=== PATIENT | male | born 1965 | race Caucasian/White ===

== ENCOUNTER 2023-09-22 15:12 | Emergency (ER) | payer MEDICARE, SELFPAY ==
[2023-09-22] VITALS (34 sets, daily range): BP systolic 104–179; BP diastolic 59–128; PULSE 89–113; RESP 22–39; TEMP 36.4; O2SAT 86–100; BMI 36.5
--- NOTE | 2023-09-22 15:30 | DI.RAD.S_ITS ---
PROCEDURE: XR CHEST 1V INDICATIONS: Shortness of breath TECHNIQUE: One view of the chest was acquired. COMPARISON: [facility], , CHEST 2 VIEW, 06/15/2012, 13:34. FINDINGS: Surgical changes and devices: None. Lungs and pleura: On this semiupright portable chest examination, no large pneumothorax or large pleural effusions are seen. No focal infiltrates are seen. Mild interstitial prominence can be seen. Mediastinum: Mediastinal contours appear normal. Heart size is mildly enlarged. Bones and chest wall: No suspicious bony lesions. There is a remote left clavicle fracture, which has healed with deformity. Overlying soft tissues appear unremarkable. IMPRESSION: Mild cardiomegaly and generalized interstitial prominence. Please consider CHF. Additional findings: Remote left clavicle fracture, with deformity Dictated by: Srinivasan Moise M.D. on 09/22/2023 at 15:17 Approved by: Srinivasan Moise M.D. on 09/22/2023 at 15:18
[2023-09-22] MEDS: ALBUTEROL/IPRATROPIUM 3 ML AMPUL 9 ML INH (15:43)
[2023-09-22 15:55] LABS: Add Manual Diff / Slide Review NO; Basophils Absolute Auto 100 /uL (0-100); Basophils Percent Auto 0.7 % (0-2); Eosinophils Absolute Auto 0 /uL (0-450); Eosinophils Percent Auto 0.3 % (2-4); Hematocrit 40.2 % (41-53); Hemoglobin 12.9 g/dL (13.5-17.5); Lymphocytes Absolute Auto 1800 /uL (1100-4500); Lymphocytes Percent Auto 18.9 % (25-40); Mean Corpuscular HGB Conc 32.2 % (30-36); Mean Corpuscular Hemoglobin 26.3 PG (26-34); Mean Corpuscular Volume 81.6 fL (80-100); Monocytes Absolute Auto 500 /uL (0-900); Monocytes Percent Auto 5.1 % (3-14); Neutrophils Absolute Auto 7000 /uL (1500-7000); Platelet Count 245 X10^3/uL (150-400); Red Blood Cell Count 4.93 X10^6/uL (4.5-5.9); Red Cell Distribution Width 15.4 % (11.6-14.8); White Blood Cell Count 9.3 X10^3/uL (4.5-11.0)
[2023-09-22 15:56] LABS: INR 1.5 (0.9-1.3); Prothrombin Time 17.1 SECONDS (9.4-12.5)
[2023-09-22 16:01] LABS: Alanine Aminotransferase 41 IU/L (<50); Albumin 3.9 g/dL (3.5-5.0); Albumin Globulin Ratio 1.1 (1.0-2.8); Alkaline Phosphatase 127 U/L (38-126); Aspartate Aminotransferase 54 IU/L (17-59); BUN Creatinine Ratio 24.8 (6-22); Bilirubin Total 1.7 mg/dL (0.2-1.3); Blood Urea Nitrogen 32 mg/dL (9-20); Calcium 8.9 mg/dL (8.4-10.2); Carbon Dioxide 25 mmol/L (22-32); Chloride 99 mmol/L (98-107); Estimated Glomerular Filt Rate > 60 mL/min (>60); Globulin 3.4 g/dL (1.7-4.1); Glucose 260 mg/dL (70-100); HEMOLYSIS < 15 (0-50); Potassium 4.1 mmol/L (3.4-5.1); Sodium 133 mmol/L (137-145); Total Protein 7.3 g/dL (6.3-8.2)
[2023-09-22 16:02] LABS: Lactate (Lactic Acid) 1.4 mmol/L (0.7-2.1)
[2023-09-22 16:13] LABS: NT-proBNP (BNP-Adult 18+) 7340 pg/mL (<125)
[2023-09-22 16:26] LABS: Troponin I 0.254 ng/mL (0.01-0.034)
--- NOTE | 2023-09-22 16:34 | ED_ITS ---
HPI - General Adult General Chief complaint: Shortness of Breath/Dyspnea Stated complaint: sob, achey muscles Time Seen by Provider: 09/22/23 15:52 Source: patient Mode of arrival: Ambulatory History of Present Illness HPI narrative: 58-year-old gentleman with a history of COPD, hypertension poor medical compliance who presents with increasing dyspnea over the past number of days. He has been having an increasing cough and this afternoon became acutely more short of breath took some Mucinex and feels that the Mucinex caused worsening dyspnea, central chest pressure described as 5 to 6/10 that has not resolved, diaphoresis and nausea. I suspect that the Mucinex is true, true and unrelated. Related Data Home Medications Medication Instructions Recorded Confirmed HYDROCOD/ACET 5/500 (bulk)- 2 tab PO Q4HP ##0 06/15/12 (Hydrocodon-Acetaminophen 5-500) atenolol 25 mg tablet 50 mg PO BID ##0 06/15/12 cyclobenzaprine 10 mg tablet 5 mg PO TIDPRN ##0 06/24/12 duloxetine 60 mg capsule,delayed 60 mg PO QDAY ##0 06/24/12 release (Cymbalta) lisinopril 10 mg tablet 10 mg PO QDAY ##0 06/24/12 methocarbamol 750 mg tablet 750 mg PO PRN ##1 06/24/12 (Robaxin-750) ibuprofen 600 mg tablet PO PRN ##0 07/16/12 Allergies Allergy/AdvReac Type Severity Reaction Status Date / Time codeine Allergy Mild ITCHING Verified 09/22/23 16:48 Review of Systems Review of Systems Narrative: Pertinent positive and negative findings as per HPI Patient History Medical History Hypertension COPD (chronic obstructive pulmonary disease) Social History Smoking Status: Current every day smoker Smoking Status: Current every day smoker tobacco type: cigarettes Substance Use Type: does not use Exam Initial Vital Signs Initial Vital Signs: Vital Signs Temperature 97.6 F 09/22/23 15:23 Pulse Rate 111 H 09/22/23 15:23 Respiratory Rate 26 H 09/22/23 15:23 Blood Pressure 167/106 H 09/22/23 15:23 Pulse Oximetry 97 09/22/23 15:23 Oxygen Delivery Method Room Air 09/22/23 15:23 General: Chronically ill-appearing, complaining of central chest pressure/tightness, pale, [place], diaphoretic, dyspneic HEENT: Moist mucous membranes, normal sclera with reactive pupils, Neck: No JVD, supple Respiratory: Lungs are clear to auscultation, no wheezing no rales no rhonchi. Full and symmetrical air movement Cardiac: Regular rate and rhythm no murmurs no bruits Abdomen: Soft, nontender, good bowel tones, no flank pain Skin: Pale, diaphoretic Neurologic: Grossly neurologically intact with no obvious asymmetries or abnormalities Extremities: No trauma, well perfused Psych: Cooperative, appropriate insight and affect Course Orders Ordered: ED Orders 09/22/23 15:30 XR chest 1V Stat Measure peak expiratory flow ONCE RT Consult Eval and Treat NOW 09/22/23 15:35 EKG-12 Lead Stat 09/22/23 15:37 Complete Blood Count AUTO DIFF Stat Comprehensive Metabolic Panel Stat D Dimer Stat Lactate (Lactic Acid) Stat NT-proBNP (BNP-Adult 18+) Stat Prothrombin Time INR Stat Troponin I Stat 09/22/23 15:54 Covid-19 + FLU A/B + RSV - PCR Stat 09/22/23 16:42 EKG-12 Lead Stat 09/22/23 17:23 EKG-12 Lead Stat 09/22/23 17:45 Trop I [Troponin I] Stat Discontinued Medications Albuterol/Ipratropium (Albuterol/Ipratropium 3 Ml Ampul) 9 ml INH NOW ONE Stop: 09/22/23 15:40 Last Admin: 09/22/23 15:43 Dose: 9 ml Documented By: STEVE Furosemide (Furosemide 40 Mg/4 Ml Vial) 40 mg IV NOW ONE Stop: 09/22/23 16:35 Last Admin: 09/22/23 16:44 Dose: 40 mg Heparin Sodium (Porcine) (Heparin 5,000 Unit/Ml Vial) 5,000 unit IV NOW ONE Stop: 09/22/23 16:55 Last Admin: 09/22/23 16:59 Dose: 5,000 unit Heparin Sodium/Dextrose (Heparin Drip) 25,000 unit in 500 mls @ 26.127 mls/hr IV CONT ELIZABET; Protocol Last Titration: 09/22/23 18:14 Dose: 12 units/kg/hr, 26.127 mls/hr Sodium Nitroprusside 50 mg/ (Dextrose) 250 mls @ 16.329 mls/hr IV TITRATE ELIZABET; Protocol Last Titration: 09/22/23 18:14 Dose: 0.5 mcg/kg/min, 16.329 mls/hr Metoprolol Tartrate (Metoprolol Tartrate 5 Mg/5 Ml Inj) 5 mg IV Q5M ELIZABET Stop: 09/22/23 16:56 Last Admin: 09/22/23 17:39 Dose: 5 mg Morphine Sulfate (Morphine 2 Mg/Ml Inj) 2 mg IV Q5MIN PRN PRN Reason: Chest Pain Last Admin: 09/22/23 17:39 Dose: 2 mg Nitroglycerin (Nitroglycerin 0.4 Mg Sl Tab) 0.4 mg SL [id number] PRN PRN Reason: Chest Pain Last Admin: 09/22/23 16:41 Dose: 0.4 mg Nitroglycerin (Nitroglycerin Oint 1 Inch/Gm Oint...G.) 0.5 inch TOP NOW ONE Stop: 09/22/23 16:35 Last Admin: 09/22/23 16:42 Dose: 0.5 inch Vital Signs Vital signs: Vital Signs - 8 hr 09/22/23 15:23 09/22/23 15:40 09/22/23 15:43 Temperature 97.6 F Pulse Rate 111 H 109 H 110 H Respiratory Rate 26 H 31 H 22 Blood Pressure 167/106 H Pulse Oximetry 97 97 100 Oxygen Delivery Method Room Air Room Air Room Air Oxygen Flow Rate 09/22/23 16:00 09/22/23 16:15 09/22/23 16:30 Temperature Pulse Rate 110 H 109 H 112 H Respiratory Rate 29 H 27 H 30 H Blood Pressure Pulse Oximetry 100 96 93 Oxygen Delivery Method Oxygen Flow Rate 09/22/23 16:33 09/22/23 16:33 09/22/23 16:41 Temperature Pulse Rate 112 H 113 H Respiratory Rate 30 H Blood Pressure 179/105 H 179/105 H Pulse Oximetry 96 Oxygen Delivery Method Oxygen Flow Rate 09/22/23 16:42 09/22/23 16:44 09/22/23 16:45 Temperature Pulse Rate 113 H 113 H Respiratory Rate 38 H Blood Pressure 179/105 H 178/128 H Pulse Oximetry 100 Oxygen Delivery Method Nasal Cannula Oxygen Flow Rate 09/22/23 16:45 09/22/23 16:46 09/22/23 16:46 Temperature Pulse Rate 113 H 113 H Respiratory Rate 36 H 36 H Blood Pressure 127/76 Pulse Oximetry 99 100 Oxygen Delivery Method Oxygen Flow Rate 09/22/23 16:49 09/22/23 16:49 09/22/23 16:50 Temperature Pulse Rate 113 H Respiratory Rate 31 H Blood Pressure 135/80 128/75 Pulse Oximetry 99 Oxygen Delivery Method Nasal Cannula Oxygen Flow Rate 2 09/22/23 16:50 09/22/23 16:54 09/22/23 16:54 Temperature Pulse Rate 113 H 111 H Respiratory Rate 31 H 29 H Blood Pressure 122/73 Pulse Oximetry 99 98 Oxygen Delivery Method Oxygen Flow Rate 09/22/23 16:55 09/22/23 16:56 09/22/23 16:56 Temperature Pulse Rate 104 H 102 H Respiratory Rate 34 H 27 H Blood Pressure 104/81 Pulse Oximetry 98 99 Oxygen Delivery Method Oxygen Flow Rate 09/22/23 17:00 09/22/23 17:00 09/22/23 17:05 Temperature Pulse Rate 99 H 97 H Respiratory Rate 39 H 30 H Blood Pressure 114/78 Pulse Oximetry 95 100 Oxygen Delivery Method Oxygen Flow Rate 09/22/23 17:05 09/22/23 17:07 09/22/23 17:07 Temperature Pulse Rate 97 H Respiratory Rate 30 H Blood Pressure 112/60 106/59 L Pulse Oximetry 99 Oxygen Delivery Method Oxygen Flow Rate 09/22/23 17:10 09/22/23 17:11 09/22/23 17:11 Temperature Pulse Rate 96 H 97 H Respiratory Rate 29 H 28 H Blood Pressure 116/74 Pulse Oximetry 94 98 Oxygen Delivery Method Oxygen Flow Rate 09/22/23 17:15 09/22/23 17:15 09/22/23 17:20 Temperature Pulse Rate 93 H 93 H Respiratory Rate 31 H 35 H Blood Pressure 119/75 Pulse Oximetry 97 97 Oxygen Delivery Method Nasal Cannula Oxygen Flow Rate 2 09/22/23 17:21 09/22/23 17:21 09/22/23 17:25 Temperature Pulse Rate 94 H 93 H Respiratory Rate 29 H 22 Blood Pressure 115/88 Pulse Oximetry 99 99 Oxygen Delivery Method Oxygen Flow Rate 09/22/23 17:26 09/22/23 17:26 09/22/23 17:30 Temperature Pulse Rate 93 H Respiratory Rate 29 H Blood Pressure 130/88 112/67 Pulse Oximetry 96 Oxygen Delivery Method Oxygen Flow Rate 09/22/23 17:30 09/22/23 17:35 09/22/23 17:35 Temperature Pulse Rate 92 H 94 H Respiratory Rate 28 H 28 H Blood Pressure 129/73 Pulse Oximetry 98 91 Oxygen Delivery Method Oxygen Flow Rate 09/22/23 17:40 09/22/23 17:40 09/22/23 17:45 Temperature Pulse Rate 93 H 93 H Respiratory Rate 26 H 26 H Blood Pressure 128/78 Pulse Oximetry 96 Oxygen Delivery Method Oxygen Flow Rate 09/22/23 17:50 09/22/23 17:50 09/22/23 17:55 Temperature Pulse Rate 90 89 Respiratory Rate 26 H 34 H Blood Pressure 127/86 Pulse Oximetry 86 L Oxygen Delivery Method Oxygen Flow Rate 09/22/23 17:55 09/22/23 18:00 09/22/23 18:00 Temperature Pulse Rate 90 Respiratory Rate 24 Blood Pressure 129/86 131/90 Pulse Oximetry 89 L 92 Oxygen Delivery Method Oxygen Flow Rate Medical Decision Making Lab Data 09/22/23 15:37 09/22/23 15:37 Labs: Lab Results 09/22/23 09/22/23 09/22/23 Range/Units 15:37 15:54 17:49 WBC 9.3 (4.5-11.0) X10^3/uL RBC 4.93 (4.5-5.9) X10^6/uL Hgb 12.9 L (13.5-17.5) g/dL Hct 40.2 L (41-53) % MCV 81.6 (80-100) fL MCH 26.3 (26-34) PG MCHC 32.2 (30-36) % RDW 15.4 H (11.6-14.8) % Plt Count 245 (150-400) X10^3/uL Neut % (Auto) 75.0 (50-75) % Lymph % (Auto) 18.9 L (25-40) % [place] % (Auto) 5.1 (3-14) % Eos % (Auto) 0.3 L (2-4) % Baso % (Auto) 0.7 (0-2) % Neut # (Auto) 7000 (8074-9378) /uL Lymph # (Auto) 1800 (5644-1025) /uL [place] # (Auto) 500 (0-900) /uL Eos # (Auto) 0 (0-450) /uL Baso # (Auto) 100 (0-100) /uL PT 17.1 H (9.4-12.5) SECONDS INR 1.5 H (0.9-1.3) D-Dimer 2200 H (<500) ng/ml Sodium 133 L (137-145) mmol/L Potassium 4.1 (3.4-5.1) mmol/L Chloride 99 (98-107) mmol/L Carbon Dioxide 25 (22-32) mmol/L BUN 32 H (9-20) mg/dL Creatinine 1.29 H (0.66-1.25) mg/dL Estimated GFR > 60 (>60) mL/min BUN/Creatinine Ratio 24.8 H (6-22) Glucose 260 H (70-100) mg/dL Lactate 1.4 (0.7-2.1) mmol/L Calcium 8.9 (8.4-10.2) mg/dL Total Bilirubin 1.7 H (0.2-1.3) mg/dL AST 54 (17-59) IU/L ALT 41 (<50) IU/L Alkaline Phosphatase 127 H (38-126) U/L Troponin I 0.254 H* 0.275 H* (0.01-0.034) ng/mL NT-Pro-B Natriuret Pep 7340 H (<125) pg/mL Total Protein 7.3 (6.3-8.2) g/dL Albumin 3.9 (3.5-5.0) g/dL Globulin 3.4 (1.7-4.1) g/dL Albumin/Globulin Ratio 1.1 (1.0-2.8) SARS-CoV-2 (PCR) Negative (Negative) Influenza A (RT-PCR) Flu a negative (NEGATIVE) Influenza B (RT-PCR) Flu b negative (NEGATIVE) RSV (PCR) Negative (Negative) MDM Narrative Medical decision making narrative: CC:chest pain Complicating co-morbidities: COPD, continued smoker, untreated hypertension Data collected from: patient Medical records reviewed: No medical records are available Differential considered: STEMI, acute coronary syndrome, pulmonary embolism, pneumothorax, COPD exacerbation Exam documented above, pertinent findings include: Patient is acutely uncomfortable, initially pale, diaphoretic, tachypneic. Minor scattered wheezes, no abdominal pain, no palpable reproducible chest pain and no lower extremity edema Lab Test results independently reviewed as above. Pertinent findings: CBC is unremarkable Chemistries show creatinine of 1.29, potassium is appropriate, sodium is 133, glucose is elevated at 260. Bilirubin elevated at 1.7. Initial troponin is 0.25 for ProBNP is 7000 Independently reviewed EK Sinus tach, STT wave changes not meeting STEMI criteria. Less than a mm elevation anteriorly with lead 3 and V6 showing some minor ST depression again not meeting STEMI criteria With continued pain and positive troponin returned at 4:42 p.m. EKG is unchanged sinus tach at 112. Nonspecific T-wave abnormalities not meeting STEMI criteria With continued chest pain, now increasing diaphoresis and dyspnea EKG is repeated at 5:26 p.m. and again unchanged Imaging studies independently reviewed: Consultations: Care is reviewed with Dr. Aiken, development team lead at [facility] She is consulted with the emergency physician and will arrange for ED to ED transfer with anticipation that he will go to the landscaping and groundskeeping laborer when landscaping and groundskeeping laborer becomes immediately available. Discussed with ED, Dr. Roth. Accepts patient ED to ED transfer to [facility] Treatments: Aspirin, heparin drip, sublingual nitro currently on nitroglycerin drip , IV metoprolol, IV heparin, IV morphine Re-evaluations: In looking at labs does not look like congestive heart failure or diabetes are part of his prior diagnoses Discussion: 58-year-old gentleman with cough for a week with acute significant change early this afternoon suggesting acute coronary event. Pulmonary embolism is a possibility. This point he has not stable enough to go to the CT scanner but it D-dimer will be added. If negative we will be helpful if not will need further evaluation. Findings reviewed with the patient as well as his brother with concerns for acute coronary syndrome with continued pain that I am not able to completely control. After discussion with Dr. Aiken, currently they have a patient in the landscaping and groundskeeping laborer but Mr. Josue has been accepted as an ED the ED transfer with likely transfer to the landscaping and groundskeeping laborer when available. We will continue with nitro drips, heparin drips, morphine as needed, oxygen. Patient is aware of concerns, have reviewed findings with his brother as well. Stat transfer has been initiated. Second troponin and D-dimer are currently pending Handoff given to medics, questions answered. Patient remains in serious condition but hemodynamically stable at time of stat transfer to [facility]. 7pm positive D-dimer at 2200 and increasingly elevating troponin at 0.275 are both shared with the accepting [facility] physician. Critical Care Time Critical Care Time Critical Care Time: Yes Total Critical Care Time: 36 Attestation: Critical care time is separate from other billable procedures. There is a high probability of a significant, sudden or life-threatening deterioration that requires my full and direct attention, intervention and personal management. This critical care time includes consultation with family and other consulting doctors, review of records, and interpretation of data from labs, EKGs and imaging as well as managements of unstable angina, NSTEMI Discharge Plan Departure Patient Disposition: [facility] Clinical Impression: Angina pectoris, unstable, Non-ST elevation SC (NSTEMI), Elevated blood sugar Congestive heart failure Qualifiers: Heart failure type: unspecified Heart failure chronicity: unspecified Qualified Code(s): I50.9 - Heart failure, unspecified Prescriptions: No Action atenolol 25 MG tablet 50 mg PO BID Qty: 0 HYDROCOD/ACET 5/500 (bulk)- (Hydrocodon-Acetaminophen 5-500) 2 tab PO Q4HP Qty: 0 lisinopril 10 MG tablet 10 mg PO QDAY Qty: 0 cyclobenzaprine 10 MG tablet 5 mg PO TIDPRN Qty: 0 methocarbamol [Robaxin-750] 750 MG tablet 750 mg PO PRN Qty: 1 duloxetine [Cymbalta] 60 MG capsule,delayed release(DR/EC) 60 mg PO QDAY Qty: 0 ibuprofen 600 MG tablet PO PRN Qty: 0 Referrals: Miscellaneous,Doctor, MD [Primary Care Provider] -
[2023-09-22 16:38] LABS: Influenza A - CEPHEID Flu A NEGATIVE (NEGATIVE); Influenza B - CEPHEID Flu B NEGATIVE (NEGATIVE); Respiratory Syncytial Virus Negative (Negative)
[2023-09-22] MEDS: NITROGLYCERIN 0.4 MG SL TAB SL (16:41)
[2023-09-22] MEDS: NITROGLYCERIN OINT 1 INCH/GM OINT...G. 0.5 INCH TOP (16:42)
[2023-09-22] MEDS: FUROSEMIDE 40 MG/4 ML VIAL IV (16:44)
[2023-09-22 16:46] LABS: COVID-19 CEPHEID 4-PLEX PCR Negative (Negative)
[2023-09-22] MEDS: METOPROLOL TARTRATE 5 MG/5 ML INJ IV ×3 (16:51→17:39)
--- NOTE | 2023-09-22 16:57 | PC.NURSE ---
nitro paste off at 1656, to start on a NTG drip
[2023-09-22] MEDS: HEPARIN 5,000 UNIT/ML VIAL 5000 UNIT IV (16:59)
[2023-09-22] MEDS: HEPARIN DRIP 25,000 UNIT/500 ML IV.SOLN 26.127 UNIT IV (17:00)
[2023-09-22] MEDS: NITROPRUSSIDE SODIUM IV (17:18)
[2023-09-22] MEDS: DEXTROSE 5% IV (17:18)
[2023-09-22] MEDS: WATER IV (17:18)
[2023-09-22] MEDS: MORPHINE 2 MG/ML INJ IV (17:39)
[2023-09-22 18:01] LABS: D Dimer 2200 ng/ml (<500)
--- NOTE | 2023-09-22 18:13 | PC.NURSE ---
rpt called to Bakari king at [facility]
[2023-09-22 18:24] LABS: Troponin I 0.275 ng/mL (0.01-0.034)
== END 2023-09-22 18:14 | disposition short-term general hospital (02) ==
PROVIDERS: Emergency Provider Emergency Medicine
DX: I21.4 Non-ST elevation (NSTEMI) myocardial infarction (principal); I50.9 Heart failure, unspecified; R73.9 Hyperglycemia, unspecified; Z79.899 Other long term (current) drug therapy; Z20.822 Contact with and (suspected) exposure to COVID-19
CPT/HCPCS: 0241U; 36415; 71045; 80053; 83605; 83880; 84484; 85025; 85379; 85610; 93005; 94640; 96365; 96368; 96375; 99285; 99291; J1644; J1940; J2270

== ENCOUNTER 2024-06-04 17:01 | Emergency (ER) | payer MEDICARE, SELFPAY ==
[2024-06-04] VITALS (11 sets, daily range): BP systolic 139–178; BP diastolic 76–100; PULSE 79–88; RESP 16–37; TEMP 36.2; O2SAT 88–99; BMI 33.0
--- NOTE | 2024-06-04 17:27 | DI.RAD.S_ITS ---
PROCEDURE: XR CHEST 2V INDICATIONS: open heart surgery 1 month ago; infection? TECHNIQUE: 2 views of the chest were acquired. COMPARISON: Located Within [facility], CR, XR CHEST 1V, 09/22/2023, 15:31. FINDINGS: Surgical changes and devices: Median sternotomy changes. Lungs and pleura: Bilateral perihilar interstitial thickening. No focal consolidation, effusion, or pneumothorax. Mediastinum: Mild cardiomegaly. Indistinct central vessels. Normal aortic contour. Bones and chest wall: No suspicious bony abnormalities. Soft tissues appear unremarkable. IMPRESSION: Mild cardiomegaly and perihilar central venous congestion with interstitial thickening suggesting volume overload or CHF. Correlate with BNP. Dictated by: Hedy Raman M.D. on 06/04/2024 at 19:44 Approved by: Hedy Raman M.D. on 06/04/2024 at 19:45
--- NOTE | 2024-06-04 17:47 | EKG_ITS ---
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
[2024-06-04 18:02] LABS: Add Manual Diff / Slide Review NO; Basophils Absolute Auto 100 /uL (0-100); Eosinophils Absolute Auto 200 /uL (0-450); Eosinophils Percent Auto 2.2 % (2-4); Hematocrit 36.7 % (41-53); Hemoglobin 11.8 g/dL (13.5-17.5); Lymphocytes Absolute Auto 1400 /uL (1100-4500); Lymphocytes Percent Auto 17.5 % (25-40); Mean Corpuscular Hemoglobin 25.2 PG (26-34); Mean Corpuscular Volume 78.8 fL (80-100); Monocytes Absolute Auto 500 /uL (0-900); Monocytes Percent Auto 6.8 % (3-14); Neutrophils Absolute Auto 5900 /uL (1500-7000); Neutrophils Percent Auto 72.5 % (50-75); Platelet Count 402 X10^3/uL (150-400); Red Blood Cell Count 4.66 X10^6/uL (4.5-5.9); Red Cell Distribution Width 16.7 % (11.6-14.8); White Blood Cell Count 8.1 X10^3/uL (4.5-11.0)
[2024-06-04 18:06] LABS: Prothrombin Time 11.3 SECONDS (9.4-12.5)
[2024-06-04 18:09] LABS: PTT Partial Thromboplastin Tim 37 SECONDS (25.1-36.5)
[2024-06-04 18:12] LABS: Lactate (Lactic Acid) 1.1 mmol/L (0.7-2.1)
[2024-06-04 18:13] LABS: Alanine Aminotransferase 26 IU/L (<50); Albumin 3.8 g/dL (3.5-5.0); Alkaline Phosphatase 182 U/L (38-126); Aspartate Aminotransferase 28 IU/L (17-59); BUN Creatinine Ratio 12.8 (6-22); Bilirubin Total 0.3 mg/dL (0.2-1.3); Blood Urea Nitrogen 14 mg/dL (9-20); Calcium 8.9 mg/dL (8.4-10.2); Carbon Dioxide 32 mmol/L (22-32); Chloride 96 mmol/L (98-107); Creatine Kinase 88 U/L (55-170); Estimated Glomerular Filt Rate > 60 mL/min (>60); Globulin 3.8 g/dL (1.7-4.1); Glucose 325 mg/dL (70-100); HEMOLYSIS < 15 (0-50); Lipase 71 U/L (23-300); Magnesium 2.1 mg/dL (1.6-2.3); Potassium 3.5 mmol/L (3.4-5.1); Sodium 134 mmol/L (137-145); Total Protein 7.6 g/dL (6.3-8.2)
[2024-06-04 18:25] LABS: NT-proBNP (BNP-Adult 18+) 1310 pg/mL (<125); Troponin I 0.023 ng/mL (0.01-0.034)
--- NOTE | 2024-06-04 18:29 | ED.SKABFB ---
HPI - Skin/Abscess/Foreign Bdy General Chief complaint: Skin/Abscess/Foreign Body Stated complaint: thinks has infection, heart sx in january Time Seen by Provider: 06/04/24 17:55 Source: patient Mode of arrival: Ambulatory Limitations: no limitations History of Present Illness HPI narrative: patient is a 59-year-old male who is here for evaluation of what he thinks is an infection across his chest. 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 He states that the procedure went well. He was followed up with his Cardiothoracic surgeon since then. Has been cleared by Cardiothoracic surgery. Has a follow-up with his local system planning engineer coming up in the next couple weeks. He was here because he states that for the past month he has noticed some pressure across his chest. He states that he feels like it is in the muscles there is swelling in his chest. He denies specific chest pain that would be described as cardiac chest pain. No shortness of breath. No fevers. Over the past week he was noticed some increase in redness around the surgical incision in the center of his chest and then over the past couple days has now noticed that there has been drainage from the bottom portion of the incision and increasing redness across the front of his chest. Related Data Home Medications Medication Instructions Recorded Confirmed HYDROCOD/ACET 5/500 (bulk)- 2 tab PO Q4HP ##0 06/15/12 (Hydrocodon-Acetaminophen 5-500) atenolol 25 mg tablet 50 mg PO BID ##0 06/15/12 cyclobenzaprine 10 mg tablet 5 mg PO TIDPRN ##0 06/24/12 duloxetine 60 mg capsule,delayed 60 mg PO QDAY ##0 06/24/12 release (Cymbalta) lisinopril 10 mg tablet 10 mg PO QDAY ##0 06/24/12 methocarbamol 750 mg tablet 750 mg PO PRN ##1 06/24/12 (Robaxin-750) ibuprofen 600 mg tablet PO PRN ##0 07/16/12 Previous Rx's Medication Instructions Recorded amoxicillin 875 mg-potassium 1 tab PO Q12H 10 days #20 tabs 06/04/24 clavulanate 125 mg tablet Allergies Allergy/AdvReac Type Severity Reaction Status Date / Time codeine Allergy Mild ITCHING Verified 09/22/23 16:48 Review of Systems Review of Systems ROS Unobtainable: All systems reviewed & are unremarkable except as noted in HPI and below Patient History Medical History Hypertension COPD (chronic obstructive pulmonary disease) Social History Smoking Status: Current every day smoker Smoking Status: Current every day smoker tobacco type: cigarettes Substance Use Type: does not use Exam Initial Vital Signs Initial Vital Signs: Vital Signs Temperature 97.2 F L 06/04/24 17:18 Pulse Rate 85 06/04/24 17:18 Respiratory Rate 16 06/04/24 17:18 Blood Pressure 162/94 H 06/04/24 17:18 Pulse Oximetry 96 06/04/24 17:18 Oxygen Delivery Method Room Air 06/04/24 17:18 Const General: cooperative, comfortable and No ill appearing Resp Effort & Inspection: normal respiratory effort Auscultation: clear to auscultation bilaterally Cardio Rate: regular rate Rhythm: regular rhythm GI Inspection: normal to inspection and non-distended Palpation: soft and No tender Back/Spine/Pelvis Other: Skin Other: ?At the inferior portion of the midline incision of his sternum there is an open area that appears to be draining purulent material.? There was no crepitus around this area.? He has redness across the front of his chest extending to both pectoralis region.? No crepitus in this area as well. Neuro General: patient alert, patient awake and moves all extremities Extrem General: capillary refill normal Course Orders Ordered: ED Orders 06/04/24 17:25 EKG-12 Lead Stat 06/04/24 17:27 XR chest 2V Stat 06/04/24 17:45 Complete Blood Count AUTO DIFF Stat Comprehensive Metabolic Panel Stat Lactate (Lactic Acid) Stat Lipase Stat Magnesium Stat NT-proBNP (BNP-Adult 18+) Stat PTT Partial Thromboplastin [place] Stat Prothrombin Time INR Stat Troponin & CK Cardiac Panel Stat 06/04/24 18:29 CT chest w con Stat 06/04/24 18:30 Wound Culture and Gram Stain Stat 06/04/24 18:56 Blood Culture Stat Discontinued Medications Vancomycin HCl (Vancomycin) 1,000 mg in 200 mls @ 200 mls/hr IV NOW ONE Stop: 06/04/24 19:28 Last Infusion: 06/04/24 20:52 Dose: Infused Documented By: Admin: 06/04/24 19:51 Dose: 200 mls/hr Documented By: RICK Ceftriaxone Sodium 1,000 mg/ (Sodium Chloride) 100 mls @ 200 mls/hr IV NOW ONE Stop: 06/04/24 18:30 Last Infusion: 06/04/24 19:40 Dose: Infused Documented By: Admin: 06/04/24 19:01 Dose: 200 mls/hr Documented By: JOE Vital Signs Vital signs: Vital Signs - 8 hr 06/04/24 17:18 06/04/24 17:55 06/04/24 18:09 Temperature 97.2 F L Pulse Rate 85 85 Respiratory Rate 16 20 Blood Pressure 162/94 H Pulse Oximetry 96 97 88 L Oxygen Delivery Method Room Air 06/04/24 18:10 06/04/24 18:10 06/04/24 18:30 Temperature Pulse Rate 87 80 Respiratory Rate 37 H 20 Blood Pressure 155/82 H Pulse Oximetry 95 98 Oxygen Delivery Method 06/04/24 18:30 06/04/24 19:00 06/04/24 19:30 Temperature Pulse Rate 81 84 Respiratory Rate 22 Blood Pressure 139/76 Pulse Oximetry 98 98 Oxygen Delivery Method 06/04/24 19:42 06/04/24 19:42 06/04/24 20:00 Temperature Pulse Rate 88 83 Respiratory Rate 31 H 30 H Blood Pressure 151/87 H Pulse Oximetry 98 99 Oxygen Delivery Method 06/04/24 20:00 06/04/24 20:30 06/04/24 20:30 Temperature Pulse Rate 87 Respiratory Rate Blood Pressure 167/96 H 178/100 H Pulse Oximetry 98 Oxygen Delivery Method Room Air 06/04/24 21:00 06/04/24 21:00 Temperature Pulse Rate 79 Respiratory Rate Blood Pressure 152/84 H Pulse Oximetry 97 Oxygen Delivery Method MDM - Skin/Abscess/Foreign Bdy Lab Data Attestation: I reviewed the patient's lab results. 06/04/24 17:45 06/04/24 17:45 Labs: Lab Results 06/04/24 Range/Units 17:45 WBC 8.1 (4.5-11.0) X10^3/uL RBC 4.66 (4.5-5.9) X10^6/uL Hgb 11.8 L (13.5-17.5) g/dL Hct 36.7 L (41-53) % MCV 78.8 L (80-100) fL MCH 25.2 L (26-34) PG MCHC 32.0 (30-36) % RDW 16.7 H (11.6-14.8) % Plt Count 402 H (150-400) X10^3/uL Neut % (Auto) 72.5 (50-75) % Lymph % (Auto) 17.5 L (25-40) % [place] % (Auto) 6.8 (3-14) % Eos % (Auto) 2.2 (2-4) % Baso % (Auto) 1.0 (0-2) % Neut # (Auto) 5900 (6690-7066) /uL Lymph # (Auto) 1400 (3967-9405) /uL [place] # (Auto) 500 (0-900) /uL Eos # (Auto) 200 (0-450) /uL Baso # (Auto) 100 (0-100) /uL PT 11.3 (9.4-12.5) SECONDS INR 1.0 (0.9-1.3) APTT 37 H (25.1-36.5) SECONDS Sodium 134 L (137-145) mmol/L Potassium 3.5 (3.4-5.1) mmol/L Chloride 96 L (98-107) mmol/L Carbon Dioxide 32 (22-32) mmol/L BUN 14 (9-20) mg/dL Creatinine 1.09 (0.66-1.25) mg/dL Estimated GFR > 60 (>60) mL/min BUN/Creatinine Ratio 12.8 (6-22) Glucose 325 H (70-100) mg/dL Lactate 1.1 (0.7-2.1) mmol/L Calcium 8.9 (8.4-10.2) mg/dL Magnesium 2.1 (1.6-2.3) mg/dL Total Bilirubin 0.3 (0.2-1.3) mg/dL AST 28 (17-59) IU/L ALT 26 (<50) IU/L Alkaline Phosphatase 182 H (38-126) U/L Total Creatine Kinase 88 (55-170) U/L Troponin I 0.023 (0.01-0.034) ng/mL NT-Pro-B Natriuret Pep 1310 H (<125) pg/mL Total Protein 7.6 (6.3-8.2) g/dL Albumin 3.8 (3.5-5.0) g/dL Globulin 3.8 (1.7-4.1) g/dL Albumin/Globulin Ratio 1.0 (1.0-2.8) Lipase 71 (23-300) U/L Imaging Data Chest x-ray: Radiologist's Impression: PROCEDURE: XR CHEST 2V INDICATIONS: open heart surgery 1 month ago; infection? TECHNIQUE: 2 views of the chest were acquired. COMPARISON: [facility], CR, XR CHEST 1V, 09/22/2023, 15:31. FINDINGS: Surgical changes and devices: Median sternotomy changes. Lungs and pleura: Bilateral perihilar interstitial thickening. No focal consolidation, effusion, or pneumothorax. Mediastinum: Mild cardiomegaly. Indistinct central vessels. Normal aortic contour. Bones and chest wall: No suspicious bony abnormalities. Soft tissues appear unremarkable. IMPRESSION: Mild cardiomegaly and perihilar central venous congestion with interstitial thickening suggesting volume overload or CHF. Correlate with BNP. CT scan - chest: Radiologist's Impression: PROCEDURE: CT CHEST W CON INDICATIONS: hx of GABG and mitral valve repair with cellulitis TECHNIQUE: After the administration of intravenous contrast, 5 mm thick sections acquired from the pulmonary apices to the posterior costophrenic angles. 1 mm axial lung, 5 mm thick coronal and sagittal reformats and 7 mm axial MIP were acquired. For radiation dose reduction, the following was used: automated exposure control, adjustment of mA and/or kV according to patient size. COMPARISON: None. FINDINGS: Image quality: Diagnostic. Lower Neck: No enlarged lymph nodes. Thyroid: No thyroid nodules which require sonographic follow up, per consensus guidelines. Axillae: No enlarged lymph nodes. Chest Wall: Status post median sternotomy wire. There is soft tissue stranding and thickening of the pectoralis/chest wall musculature. No organized fluid collection or subcutaneous gas. . Bones: Unremarkable. Lungs and Pleura: No pneumothorax or pleural effusions. No consolidation or suspicious nodules. Heart: Heart size is normal. No pericardial effusion. Triple-vessel coronary artery calcifications. Thoracic Vessels: The aorta and pulmonary arteries demonstrate normal size. Mediastinum and [place]: Enlarged mediastinal lymph nodes, for example right paratracheal lymph node measuring 1.5 cm in short axis (2/38). Esophagus: No wall thickening. No hiatal hernia. Upper Abdomen: Subcentimeter hepatic hypodensities too small to characterize by CT, possible cyst versus hemangioma. Remainder of visualized upper abdomen solid organs and bowel loops appear normal. IMPRESSION: Status post median sternotomy with anterior chest wall subcutaneous soft tissue stranding and thickening, which may represent cellulitis. No abscess or drainable fluid collection. No subcutaneous gas Mediastinal adenopathy, likely reactive. ECG Data Attestation: I personally reviewed and interpreted this ECG as follows: Interpretation: sinus rhythm Ventricular rate Normal axis normal QTC No ST T wave changes MDM Narrative Medical decision making narrative: Patient has history and physical exam consistent with cellulitis of his anterior chest and what appears to be a draining wound of the inferior portion of the midline incision. There was no crepitus around this area. He does have a leukocytosis but is afebrile. Is nontoxic appearing. CT scan is consistent with cellulitis. No deep abscess noted. The wound that is draining was culture. He was given Rocephin and vancomycin. I did discuss the case with Dr. Ndiaye with Cardiothoracic surgery at [facility]. Recommended antibiotics. We did discuss potentially admission to the hospital versus close follow-up. Feel given the patient's presentation today in the fact that he was nontoxic and then his labs and that he was tolerating oral intake that discharge home with oral antibiotics and follow-up with the Cardiothoracic surgery clinic within the next 24-[address] reasonable[address] Ndiaye will contact the patient's Cardiothoracic surgeon have the office contact the patient for a follow-up within the next 24-48 hours. I discussed this with the patient. Discussed specific return he expressed understanding and agreement plan. Discharge Plan Departure Patient Disposition: Home Clinical Impression: Cellulitis Instructions: DI for Cellulitis -- Adult Activity Restrictions/Additional Instructions: Continue to take all of your medications as directed. He should be receiving a call from Dr. Tavera's office sometime tomorrow morning. I anticipate that they are going to want to see you in clinic within the next 24-48 hours. Until then a prescription for antibiotics was sent to [facility] per your request. Please take them as directed. Return to the emergency department for new or worsening symptoms. Prescriptions: New amoxicillin-pot clavulanate 875-125 mg tablet 1 tab PO Q12H 10 Days Qty: 20 0RF No Action atenolol 25 MG tablet 50 mg PO BID Qty: 0 HYDROCOD/ACET 5/500 (bulk)- (Hydrocodon-Acetaminophen 5-500) 2 tab PO Q4HP Qty: 0 lisinopril 10 MG tablet 10 mg PO QDAY Qty: 0 cyclobenzaprine 10 MG tablet 5 mg PO TIDPRN Qty: 0 methocarbamol [Robaxin-750] 750 MG tablet 750 mg PO PRN Qty: 1 duloxetine [Cymbalta] 60 MG capsule,delayed release(DR/EC) 60 mg PO QDAY Qty: 0 ibuprofen 600 MG tablet PO PRN Qty: 0 Referrals: Miscellaneous,Doctor, MD [Primary Care Provider] - Stand Alone Forms: Patient Portal/API/Survey
[2024-06-04] MEDS: cefTRIAXone 1,000 MG in SODIUM CHLORIDE 0.9% 100 ML 200 MG IV (19:01)
[2024-06-04] MEDS: VANCOMYCIN 1,000 MG/200 ML PIGGYBACK 200 MG IV (19:51)
== END 2024-06-04 21:29 | disposition home or self-care (01) ==
PROVIDERS: Emergency Medicine; Emergency Provider Emergency Medicine
DX: L03.313 Cellulitis of chest wall (principal); R07.89 Other chest pain
CPT/HCPCS: 36415; 71046; 71260; 80053; 82550; 83605; 83690; 83735; 83880; 84484; 85025; 85610; 85730; 87040; 87070; 87075; 87205; 93005; 93010; 96365; 96367; 99284; J0696; Q9967

== ENCOUNTER 2024-07-21 11:18 | Emergency (ER) | payer MEDICARE, SELFPAY ==
[2024-07-21] VITALS (17 sets, daily range): BP systolic 101–221; BP diastolic 80–126; PULSE 65–114; RESP 13–26; TEMP 36.3; O2SAT 81–99; BMI 31.2
--- NOTE | 2024-07-21 11:29 | DI.RAD.S_ITS ---
PROCEDURE: XR CHEST 1V INDICATIONS: suspected sepsis TECHNIQUE: One view of the chest was acquired. COMPARISON: [facility], CR, XR CHEST 2V, 06/04/2024, 17:54. [facility], CR, XR CHEST 1V, 09/22/2023, 15:31. FINDINGS: Surgical changes and devices: Median sternotomy wires. Lungs and pleura: Lungs are clear. No pleural effusions or pneumothorax. Mediastinum: Mediastinal contours appear normal. Heart size is normal. Bones and chest wall: No suspicious bony lesions. Overlying soft tissues appear unremarkable. IMPRESSION: No acute cardiopulmonary abnormality is seen. Dictated by: Arjun Fowler M.D. on 07/21/2024 at 11:47 Approved by: Arjun Fowler M.D. on 07/21/2024 at 11:49
--- NOTE | 2024-07-21 11:46 | EKG_ITS ---
[address] [address] Test Date: 2024-07-21 Pat Name: Devyn Josue Department: Room: Gender: Male Siebel Consultant: MAD[place] : 1965 Requested By: Order Number: [id number] Reading MD: Marquez Thapa Measurements Intervals [place] Rate: 106 P: 51 KS: 176 QRS: 35 QRSD: 96 T: 94 QT: 362 QTc: 480 Interpretive Statements Sinus tachycardia Nonspecific T wave abnormality Electronically Signed On 07-21-2024 18:43:57 PST by Marquez Thapa
[2024-07-21 11:59] LABS: Add Manual Diff / Slide Review NO; Basophils Absolute Auto 100 /uL (0-100); Basophils Percent Auto 1.1 % (0-2); Eosinophils Absolute Auto 100 /uL (0-450); Eosinophils Percent Auto 1.5 % (2-4); Hematocrit 41.3 % (41-53); Hemoglobin 13.2 g/dL (13.5-17.5); Lymphocytes Absolute Auto 1500 /uL (1100-4500); Lymphocytes Percent Auto 17.5 % (25-40); Mean Corpuscular Hemoglobin 25.2 PG (26-34); Mean Corpuscular Volume 78.5 fL (80-100); Monocytes Absolute Auto 600 /uL (0-900); Monocytes Percent Auto 6.6 % (3-14); Neutrophils Absolute Auto 6200 /uL (1500-7000); Neutrophils Percent Auto 73.3 % (50-75); Platelet Count 387 X10^3/uL (150-400); Red Blood Cell Count 5.26 X10^6/uL (4.5-5.9); Red Cell Distribution Width 16.5 % (11.6-14.8); White Blood Cell Count 8.5 X10^3/uL (4.5-11.0)
[2024-07-21 12:08] LABS: INR 1.1 (0.9-1.3); Prothrombin Time 12.2 SECONDS (9.4-12.5)
[2024-07-21] MEDS: SODIUM CHLORIDE 0.9% 1,000 ML 1000 ML IV ×2 (12:09→14:47)
[2024-07-21 12:11] LABS: PTT Partial Thromboplastin Tim 36 SECONDS (25.1-36.5)
[2024-07-21 12:13] LABS: Alanine Aminotransferase 29 IU/L (<50); Alkaline Phosphatase 157 U/L (38-126); Aspartate Aminotransferase 36 IU/L (17-59); BUN Creatinine Ratio 18.9 (6-22); Bilirubin Total 0.5 mg/dL (0.2-1.3); Blood Urea Nitrogen 17 mg/dL (9-20); Calcium 8.9 mg/dL (8.4-10.2); Carbon Dioxide 25 mmol/L (22-32); Chloride 98 mmol/L (98-107); Estimated Glomerular Filt Rate > 60 mL/min (>60); Globulin 4.1 g/dL (1.7-4.1); Glucose 347 mg/dL (70-100); HEMOLYSIS 27 (0-50); Lipase 81 U/L (23-300); Potassium 3.4 mmol/L (3.4-5.1); Sodium 134 mmol/L (137-145); Total Protein 8.1 g/dL (6.3-8.2)
--- NOTE | 2024-07-21 12:15 | PC.NURSE ---
BP 226/118 Dr Spence notified. No new orders.
[2024-07-21 12:30] LABS: Procalcitonin 0.053 ng/mL (<0.5)
[2024-07-21] MEDS: HYDRALAZINE 20 MG/ML VIAL 5 MG IV (13:00)
--- NOTE | 2024-07-21 13:17 | PC.NURSE ---
Pt up ambulatory to [facility]. Steady gait noted. Updated pt on plan. understands.
--- NOTE | 2024-07-21 13:40 | ED.WOUNDLAC ---
HPI - Wound/Laceration General Chief Complaint: Wound/Laceration Stated Complaint: poss infection in incision Time Seen by Provider: 07/21/24 12:37 History of Present Illness HPI narrative: 59-year-old male with history of previous myocardial infarction August 2023 initially evaluated at [facility] with failed attempts at cardiac stenting, treated medically initially, leading to 4 vessel CABG procedure 02/12/[address] Soto, who at that time also apparently repaired a mitral valve (gasket like repair per patient, not replacement). Patient subsequently had infection in the sternum treated May 2024 with IV then oral antibiotics, felt that he got better after the course of oral antibiotics Augmentin for 10 days, believes he got better. Now with a week duration of soreness and some open wound with scant drainage to the sternal region. No fevers or chills. Denies chest pain. 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 Not currently taking any oral antibiotics. Related Data Home Medications Medication Instructions Recorded Confirmed HYDROCOD/ACET 5/500 (bulk)- 2 tab PO Q4HP ##0 06/15/12 (Hydrocodon-Acetaminophen 5-500) atenolol 25 mg tablet 50 mg PO BID ##0 06/15/12 cyclobenzaprine 10 mg tablet 5 mg PO TIDPRN ##0 06/24/12 duloxetine 60 mg capsule,delayed 60 mg PO QDAY ##0 06/24/12 release (Cymbalta) lisinopril 10 mg tablet 10 mg PO QDAY ##0 06/24/12 methocarbamol 750 mg tablet 750 mg PO PRN ##1 06/24/12 (Robaxin-750) ibuprofen 600 mg tablet PO PRN ##0 07/16/12 Previous Rx's Medication Instructions Recorded clindamycin HCl 300 mg capsule 300 mg PO Q6H Dental infection 7 07/21/24 days #28 caps doxycycline hyclate 100 mg capsule 100 mg PO BID #14 caps 07/21/24 Allergies Allergy/AdvReac Type Severity Reaction Status Date / Time codeine Allergy Mild ITCHING Verified 09/22/23 16:48 Patient History Medical History Hypertension COPD (chronic obstructive pulmonary disease) Social History Smoking Status: Current every day smoker Smoking Status: Current every day smoker tobacco type: cigarettes Exam Narrative Exam Narrative: GENERAL: Well-developed patient, in mild distress. HEAD: Atraumatic. Normocephalic. EYES: Pupils equal round and reactive. Extraocular motions intact. No scleral icterus. No injection or drainage. ENT: Nose without bleeding, purulent drainage. Throat without erythema, tonsillar hypertrophy or exudate. Airway patent. NECK: Trachea midline. Non tender CARDIOVASCULAR: Regular rate and rhythm without murmurs, gallops, or rubs. RESPIRATORY: Clear to auscultation. Breath sounds equal bilaterally. No wheezes, rales, or rhonchi. GASTROINTESTINAL: Abdomen soft, non-tender, nondistended. EXTREMITIES: No edema or joint tenderness. BACK: Nontender without deformity or crepitance. No flank tenderness. NEURO: AOx3. Motor functions grossly nonfocal SKIN: No rash or erythema of visible areas Initial Vital Signs Initial Vital Signs: Vital Signs Temperature 97.3 F L 07/21/24 11:21 Pulse Rate 114 H 07/21/24 11:21 Respiratory Rate 16 07/21/24 11:21 Blood Pressure 221/126 H 07/21/24 11:21 Pulse Oximetry 95 07/21/24 11:21 Oxygen Delivery Method Room Air 07/21/24 11:21 Course Orders Ordered: ED Orders 07/21/24 11:29 XR chest 1V Stat EKG-12 Lead Stat RT Consult Eval and Treat NOW 07/21/24 11:46 Complete Blood Count AUTO DIFF Stat Comprehensive Metabolic Panel Stat Lactate (Lactic Acid) Stat Lipase Stat PTT Partial Thromboplastin Elver Stat Procalcitonin Stat Prothrombin Time INR Stat 07/21/24 12:07 Blood Culture Stat 07/21/24 15:56 CT chest w con Stat Discontinued Medications Hydralazine HCl (Hydralazine 20 Mg/Ml Vial) 5 mg IV NOW ONE Stop: 07/21/24 12:38 Last Admin: 07/21/24 13:00 Dose: 5 mg Documented By: Hydralazine HCl (Hydralazine 20 Mg/Ml Vial) 10 mg IV Q6HR PRN PRN Reason: Hypertension Last Admin: 07/21/24 14:46 Dose: 10 mg Documented By: Sodium Chloride (Normal Saline 0.9%) 1,000 mls @ 1,000 mls/hr IV BOLUS ONE Stop: 07/21/24 12:28 Last Infusion: 07/21/24 13:16 Dose: Infused Documented By: Admin: 07/21/24 12:09 Dose: 1,000 mls/hr Documented By: Ceftriaxone Sodium 1,000 mg/ (Sodium Chloride) 100 mls @ 200 mls/hr IV NOW ONE Stop: 07/21/24 13:45 Last Infusion: 07/21/24 14:37 Dose: Infused Documented By: Admin: 07/21/24 14:00 Dose: 200 mls/hr Documented By: Vancomycin HCl 1,750 mg/ (Sodium Chloride) 500 mls @ 250 mls/hr IV NOW ONE Stop: 07/21/24 13:45 Last Infusion: 07/21/24 17:26 Dose: Infused Documented By: Admin: 07/21/24 14:47 Dose: 250 mls/hr Documented By: Sodium Chloride (Normal Saline 0.9%) 1,000 mls @ 1,000 mls/hr IV BOLUS ONE Stop: 07/21/24 15:22 Last Infusion: 07/21/24 17:26 Dose: Infused Documented By: Admin: 07/21/24 14:47 Dose: 1,000 mls/hr Documented By: Ondansetron HCl (Ondansetron 4 Mg/2 Ml Inj) 4 mg IV NOW PRN PRN Reason: Nausea And Vomiting Ondansetron HCl (Ondansetron 4 Mg Odt) 4 mg SL NOW PRN PRN Reason: Nausea And Vomiting Vital Signs Vital signs: Vital Signs - 8 hr 07/21/24 11:21 07/21/24 12:00 07/21/24 12:52 Temperature 97.3 F L Pulse Rate 114 H 103 H 103 H Respiratory Rate 16 19 26 H Blood Pressure 221/126 H 186/105 H 212/114 H Pulse Oximetry 95 97 97 Oxygen Delivery Method Room Air Room Air 07/21/24 13:00 07/21/24 13:30 07/21/24 13:53 Temperature Pulse Rate 66 93 H 68 Respiratory Rate 20 Blood Pressure 186/101 H 182/103 H 178/114 H Pulse Oximetry 97 Oxygen Delivery Method 07/21/24 14:00 07/21/24 14:46 07/21/24 15:00 Temperature Pulse Rate 95 H 65 100 H Respiratory Rate 19 24 Blood Pressure 185/100 H 204/114 H 101/80 Pulse Oximetry 97 98 Oxygen Delivery Method Room Air 07/21/24 15:24 07/21/24 15:30 07/21/24 16:08 Temperature Pulse Rate 100 H 100 H 99 H Respiratory Rate 23 23 Blood Pressure 173/97 H Pulse Oximetry 98 98 Oxygen Delivery Method 07/21/24 16:11 07/21/24 16:12 07/21/24 16:12 Temperature Pulse Rate 102 H Respiratory Rate 13 Blood Pressure 173/97 H Pulse Oximetry 81 L 92 Oxygen Delivery Method Room Air 07/21/24 16:30 07/21/24 16:30 07/21/24 17:00 Temperature Pulse Rate 104 H 98 H Respiratory Rate 24 22 Blood Pressure 177/97 H Pulse Oximetry 99 99 Oxygen Delivery Method 07/21/24 17:00 07/21/24 17:30 Temperature Pulse Rate 97 H Respiratory Rate 19 Blood Pressure 148/85 H 148/95 H Pulse Oximetry 98 Oxygen Delivery Method Room Air MDM - Wound/Laceration Lab Data Attestation: I reviewed the patient's lab results. Lab results narrative: White blood cell count 8500, hemoglobin 13.2, platelets adequate. Sodium 134, glucose 347, serum CO2 25, anion gap 12. Potassium 3.4. Lactate 2.0 noted. Alkaline phosphatase 157, other liver functions unremarkable. 07/21/24 11:46 07/21/24 11:46 Labs: Lab Results 07/21/24 Range/Units 11:46 WBC 8.5 (4.5-11.0) X10^3/uL RBC 5.26 (4.5-5.9) X10^6/uL Hgb 13.2 L (13.5-17.5) g/dL Hct 41.3 (41-53) % MCV 78.5 L (80-100) fL MCH 25.2 L (26-34) PG MCHC 32.0 (30-36) % RDW 16.5 H (11.6-14.8) % Plt Count 387 (150-400) X10^3/uL Neut % (Auto) 73.3 (50-75) % Lymph % (Auto) 17.5 L (25-40) % [place] % (Auto) 6.6 (3-14) % Eos % (Auto) 1.5 L (2-4) % Baso % (Auto) 1.1 (0-2) % Neut # (Auto) 6200 (4844-1100) /uL Lymph # (Auto) 1500 (4795-4291) /uL [place] # (Auto) 600 (0-900) /uL Eos # (Auto) 100 (0-450) /uL Baso # (Auto) 100 (0-100) /uL PT 12.2 (9.4-12.5) SECONDS INR 1.1 (0.9-1.3) APTT 36 (25.1-36.5) SECONDS Sodium 134 L (137-145) mmol/L Potassium 3.4 (3.4-5.1) mmol/L Chloride 98 (98-107) mmol/L Carbon Dioxide 25 (22-32) mmol/L BUN 17 (9-20) mg/dL Creatinine 0.90 (0.66-1.25) mg/dL Estimated GFR > 60 (>60) mL/min BUN/Creatinine Ratio 18.9 (6-22) Glucose 347 H (70-100) mg/dL Lactate 2.0 (0.7-2.1) mmol/L Calcium 8.9 (8.4-10.2) mg/dL Total Bilirubin 0.5 (0.2-1.3) mg/dL AST 36 (17-59) IU/L ALT 29 (<50) IU/L Alkaline Phosphatase 157 H (38-126) U/L Total Protein 8.1 (6.3-8.2) g/dL Albumin 4.0 (3.5-5.0) g/dL Globulin 4.1 (1.7-4.1) g/dL Albumin/Globulin Ratio 1.0 (1.0-2.8) Lipase 81 (23-300) U/L Procalcitonin 0.053 (<0.5) ng/mL Imaging Data CT chest with IV contrast: Radiologist's Impression: [address] [address] [address] Scan Report Signed Patient: Devyn Josue MR#: [id number] : 1965 Acct:[id number] Age/Sex: 59 / M Date of Service: 07/21/24 Loc: ED Accession Number: [id number] Procedure: CT chest w con Ordering Provider: Yogi Spence MD PROCEDURE: CT CHEST W CON INDICATIONS: hx sternal infection 05/2024, infected again, hx CABG 01/2024 TECHNIQUE: After the administration of intravenous contrast, 5 mm thick sections acquired from the pulmonary apices to the posterior costophrenic angles. 1 mm axial lung, 5 mm thick coronal and sagittal reformats and 7 mm axial MIP were acquired. For radiation dose reduction, the following was used: automated exposure control, adjustment of mA and/or kV according to patient size. COMPARISON: [facility], CT, CT CHEST W CON, 06/04/2024, 18:39. FINDINGS: Image quality: Diagnostic. Lower Neck: No enlarged lymph nodes. Thyroid: No thyroid nodules which require sonographic follow up, per consensus guidelines. Axillae: No enlarged lymph nodes. Chest Wall: Unremarkable. Bones: Sternotomy. Persistent inflammatory fat stranding about the sternum, without measurable abscess. No definite bony erosion. Lungs and Pleura: No pneumothorax or pleural effusions. Calcified granuloma. Pleural parenchymal bands in the left lower lobe. New juxtapleural nodule in the posterior right upper lobe, probably an intrapulmonary lymph node given location and acuity. Heart: Heart size is enlarged, status post CABG, with marked coronary artery calcifications for age. No pericardial effusion. Thoracic Vessels: The aorta and pulmonary arteries demonstrate normal size. Mediastinum and Estelle: No enlarged lymph nodes. Esophagus: No wall thickening. No hiatal hernia. Upper Abdomen: Stable hypoattenuating lesion in segment 2/4 of the liver, probably a benign cyst. Homogeneous left renal cyst. IMPRESSION: Inflammatory fat stranding surrounding the sternum, without measurable abscess. No bony erosion to suggest osteomyelitis at this time. Dictated by: Onofre Graves M.D. on 07/21/2024 at 17:10 Approved by: Onofre Graves M.D. on 07/21/2024 at 17:14 ECG Data Attestation: I personally reviewed and interpreted this ECG as follows: Interpretation: Sinus tachycardia with rate of 106, no obvious ST segment elevation or depression changes. ND 176, QRS 96, QTC 480. MDM Narrative Medical decision making narrative: 59-year-old male with history of CABG January 2024, sternal infection treated May 2024, completed antibiotics, has been well for the last couple of weeks, now with draining wounds again. Afebrile on triage, sirs screen negative. Labs pending. Blood cultures requested. IV vancomycin and IV ceftriaxone. GFR pending, consider CT imaging chest. GFR favorable, CT chest ordered. CT chest shows no osteomyelitis changes to the sternum, no mention of any drainable fluid collections. See radiology report. Patient would like to go home, we will send further antibiotic prescription to his pharmacy, oral clindamycin and oral doxycycline 7 day courses, sent to his pharmacy. Advised to recheck wound in clinic next few days. Return precautions also discussed Discharge Plan Departure Patient Disposition: Home Clinical Impression: Cellulitis of chest wall Activity Restrictions/Additional Instructions: Prior coronary bypass graft surgery January 2024, sternal wound infection May 2024, seemed to have gotten better but now worse again over the last few days. Off oral antibiotics since last month. No fever on triage. Some redness around the wounds reportedly have some drainage, could not express any fluid from them. CT scan chest showed cellulitis of the skin changes but no infection of the underlying sternal bone, in no drainable fluid collection at this time. IV antibiotics given in the emergency department. Oral antibiotics sent to your pharmacy, clindamycin and doxycycline, to take for 7 days' course of both. Advised wound check with your regular doctor in the next 2-3 days. Return to this/nearest emergency department for any change worsening symptoms or any concerns prior Prescriptions: New clindamycin HCl 300 mg capsule 300 mg PO Q6H 7 Days Qty: 28 0RF doxycycline hyclate 100 mg capsule 100 mg PO BID Qty: 14 0RF No Action atenolol 25 MG tablet 50 mg PO BID Qty: 0 HYDROCOD/ACET 5/500 (bulk)- (Hydrocodon-Acetaminophen 5-500) 2 tab PO Q4HP Qty: 0 lisinopril 10 MG tablet 10 mg PO QDAY Qty: 0 cyclobenzaprine 10 MG tablet 5 mg PO TIDPRN Qty: 0 methocarbamol [Robaxin-750] 750 MG tablet 750 mg PO PRN Qty: 1 duloxetine [Cymbalta] 60 MG capsule,delayed release(DR/EC) 60 mg PO QDAY Qty: 0 ibuprofen 600 MG tablet PO PRN Qty: 0 Referrals: Miscellaneous,Doctor, MD [Primary Care Provider] - Stand Alone Forms: Patient Portal/API/Survey
[2024-07-21] MEDS: cefTRIAXone 1,000 MG in SODIUM CHLORIDE 0.9% 100 ML 200 MG IV (14:00)
[2024-07-21] MEDS: HYDRALAZINE 20 MG/ML VIAL 10 MG IV (14:46)
[2024-07-21] MEDS: VANCOMYCIN 1,750 MG in SODIUM CHLORIDE 0.9% 500 ML 250 MG IV (14:47)
--- NOTE | 2024-07-21 15:56 | DI.CT.S_ITS ---
PROCEDURE: CT CHEST W CON INDICATIONS: hx sternal infection 05/2024, infected again, hx CABG 01/2024 TECHNIQUE: After the administration of intravenous contrast, 5 mm thick sections acquired from the pulmonary apices to the posterior costophrenic angles. 1 mm axial lung, 5 mm thick coronal and sagittal reformats and 7 mm axial MIP were acquired. For radiation dose reduction, the following was used: automated exposure control, adjustment of mA and/or kV according to patient size. COMPARISON: [facility], CT, CT CHEST W CON, 06/04/2024, 18:39. FINDINGS: Image quality: Diagnostic. Lower Neck: No enlarged lymph nodes. Thyroid: No thyroid nodules which require sonographic follow up, per consensus guidelines. Axillae: No enlarged lymph nodes. Chest Wall: Unremarkable. Bones: Sternotomy. Persistent inflammatory fat stranding about the sternum, without measurable abscess. No definite bony erosion. Lungs and Pleura: No pneumothorax or pleural effusions. Calcified granuloma. Pleural parenchymal bands in the left lower lobe. New juxtapleural nodule in the posterior right upper lobe, probably an intrapulmonary lymph node given location and acuity. Heart: Heart size is enlarged, status post CABG, with marked coronary artery calcifications for age. No pericardial effusion. Thoracic Vessels: The aorta and pulmonary arteries demonstrate normal size. Mediastinum and Estelle: No enlarged lymph nodes. Esophagus: No wall thickening. No hiatal hernia. Upper Abdomen: Stable hypoattenuating lesion in segment 2/4 of the liver, probably a benign cyst. Homogeneous left renal cyst. IMPRESSION: Inflammatory fat stranding surrounding the sternum, without measurable abscess. No bony erosion to suggest osteomyelitis at this time. Dictated by: Onofre Graves M.D. on 07/21/2024 at 17:10 Approved by: Onofre Graves M.D. on 07/21/2024 at 17:14
== END 2024-07-21 18:05 | disposition home or self-care (01) ==
PROVIDERS: Emergency Provider Emergency Medicine
DX: T81.40XA Infection following a procedure, unspecified, initial encounter (principal); L03.313 Cellulitis of chest wall; Z95.1 Presence of aortocoronary bypass graft
CPT/HCPCS: 36415; 71045; 71260; 80053; 81003; 83605; 83690; 84145; 85025; 85610; 85730; 87040; 93005; 96365; 96366; 96367; 96375; 96376; 99284; J0360; J0696; Q9967